=== PATIENT | female | born 1995 | race American Indian/Alaskan Native ===

== ENCOUNTER 2017-06-11 11:30 | Emergency (ER) | payer MEDICAID, OTHER ==
[~2017-06-11] VITALS: Ht 157.5 cm; Wt 54.5 kg
[2017-06-11 11:32] VITALS: Ht 157.5 cm; Wt 54.5 kg
[2017-06-11] MEDS ORDERED: SOD CHLORIDE 0.9% 1,000 ML IV STA (11:40)
[2017-06-11 12:11] LABS: BASOPHIL # 0.1 10^3/ul (0.0-0.1); BASOPHILS % 0.7 % (0.0-2.0); EOSINOPHILS # 0.2 10^3/ul (0.0-0.5); EOSINOPHILS % 2.1 % (0.0-7.0); HEMATOCRIT 38.2 % (37.0-47.0); HEMOGLOBIN 13.3 g/dl (12.0-16.0); LYMPHOCYTES # 4.8 10^3/ul (0.8-2.9); LYMPHOCYTES % 42.8 % (15.0-51.0); MEAN CORPUSCULAR HGB CONC 34.8 g/dl (32.0-37.0); MEAN PLATELET VOLUME 9.6 fl (7.4-10.4); MONOCYTE # 0.9 10^3/ul (0.3-0.9); MONOCYTES % 7.6 % (0.0-11.0); NEUTROPHIL # 5.2 10^3/ul (1.6-7.5); NEUTROPHILS % 46.2 % (39.0-77.0); PLATELET COUNT 299 10^3/UL (140-415); RED BLOOD COUNT 4.29 10^6/ul (4.20-5.40); RED CELL DISTRIBUTION WIDTH 12.6 % (11.5-14.5); WHITE BLOOD COUNT 11.2 10^3/ul (4.8-10.8)
[2017-06-11 12:46] LABS: ALANINE AMINOTRANSFERASE 31 IU/L (13-69); ALBUMIN 4.4 g/dl (3.3-4.9); ALBUMIN/GLOBULIN RATIO 1.37; ALKALINE PHOSPHATASE 68 IU/L (42-121); ANION GAP 18 (8-16); ASPARTATE AMINO TRANSFERASE 23 IU/L (15-46); BILIRUBIN,INDIRECT 0.4 mg/dl (0-1.1); BILIRUBIN,TOTAL 0.4 mg/dl (0.2-1.3); BLOOD UREA NITROGEN 7 mg/dl (7-20); CALCIUM 9.1 mg/dl (8.4-10.2); CARBON DIOXIDE 21 mmol/L (21-31); CHLORIDE 103 mmol/L (97-110); CREATININE 0.67 mg/dl (0.44-1.00); GLUCOSE 165 mg/dl (70-220); SODIUM 139 mmol/L (135-144); TOTAL PROTEIN 7.6 g/dl (6.1-8.1)
[2017-06-11 12:47] LABS: ACETAMINOPHEN < 10.0 ug/ml (10.0-30.0); ETHANOL < 10.0 mg/dl; POTASSIUM 2.6 mmol/L (3.5-5.1); SALICYLATE < 1.0 mg/dl (5.0-30.0)
--- NOTE | 2017-06-11 12:48 | RADRPT ---
PROCEDURE: CT Brain without. CLINICAL INDICATION: Altered mental status. TECHNIQUE: A CT of the brain was performed on multidetector high-resolution CT scanner utilizing a xial sections from the skull base through the vertex without contrast. The scan was reviewed in sof t tissue brain and high frequency resolution bone algorithm windows. Images were reviewed on a high -resolution PACS workstation. One or more the following does reduction techniques were utilized: Aut omated exposure control, adjustment of the mA/ or kV according to patient's size, or use of iterativ e reconstruction technique. The exam CTDI = 42.93 mGy and the DLP = 630.2 mGy-cm. DICOM images are available. COMPARISON: None available. FINDINGS: The ventricles and sulci are age-appropriate. There is no intracranial hemorrhage, mass effect or mi dline shift. No abnormal intra-axial or extra-axial fluid collections are seen. The nance/white damien er differentiation is preserved. No acute skull abnormality is noted. The visualized paranasal sinus es are essentially clear. IMPRESSION: 1. No acute intracranial hemorrhage, transcortical infarction or mass effect. RPTAT: HH .Ko Carrillo MD, MD Date Time Electronically viewed and signed by .Ko Carrillo MD, MD on 06/11/2017 12:48 .N/
[2017-06-11] MEDS ORDERED: POTASSIUM CHLORIDE (SR) 20 MEQ TAB PO STA (13:05)
[2017-06-11 13:18] VITALS: BP 123/81; PULSE 83; RESP 20
[2017-06-11 13:24] LABS: ADD UMIC YES; UR AMORPHOUS CRYSTAL FEW /HPF (NONE SEEN); UR ASCORBIC ACID NEGATIVE (NEGATIVE); UR BACTERIA FEW /HPF (NONE SEEN); UR BILIRUBIN (Dip) NEGATIVE (NEGATIVE); UR BLOOD (Dip) NEGATIVE (NEGATIVE); UR CLARITY SLIGHTLY CLOUDY (CLEAR); UR COLOR STRAW (YELLOW); UR GLUCOSE (Dip) NEGATIVE (NEGATIVE); UR KETONES (Dip) NEGATIVE (NEGATIVE); UR LEUKOCYTE ESTERASE (Dip) TRACE Leu/ul (NEGATIVE); UR NITRITE (Dip) NEGATIVE (NEGATIVE); UR RBC 7 /HPF (0-5); UR SPECIFIC GRAVITY (Dip) 1.003 (1.003-1.030); UR SQUAMOUS EPITHELIAL CELL FEW /HPF (FEW); UR TOTAL PROTEIN (Dip) NEGATIVE (NEGATIVE); UR UROBILINOGEN (Dip) NEGATIVE (NEGATIVE)
[2017-06-11 13:29] LABS: BARBITURATES Negative (NEGATIVE); BENZODIAZEPINES Negative (NEGATIVE); CANNABINOIDS Positive (NEGATIVE); COCAINE Negative (NEGATIVE); OPIATES Negative (NEGATIVE)
--- NOTE | 2017-06-11 14:27 | ERD ---
ER Documentation Chief Complaint Chief Complaint ingested "chocolate at work" unk substance in it pt drowsy, feels "Funny" HPI Patient is a 21-year-old female with no medical problems who presents altered. Please note the history and physical exam is limited secondary to the patient's mental status at this time. She says that she ate "chocolate" 1.5 hours ago and is now completely altered. She is not verbalizing anything. She came in with a friend who brought her. She was at work when this happened. She does not currently have a primary doctor. She upon review of old medical records has no previous visits to the ER. ROS All systems reviewed and are negative except as per history of present illness. Allergies Allergies: Coded Allergies: No Known Allergy (Unverified , 06/11/17) PMhx/Soc Medical and Surgical Hx: pt denies Medical Hx, pt denies Surgical Hx History of Surgery: No Anesthesia Reaction: No Hx Neurological Disorder: No Hx Respiratory Disorders: No Hx Cardiac Disorders: No Hx Psychiatric Problems: No Hx Miscellaneous Medical Probl: No Hx Alcohol Use: No Hx Substance Use: No Hx Tobacco Use: No Smoking Status: Never smoker FmHx Family History: No diabetes Physical Exam Vitals Vital Signs Date Time Temp Pulse Resp B/P Pulse Ox O2 Delivery O2 Flow Rate FiO2 06/11/17 13:18 83 20 123/81 99 Room Air 06/11/17 11:32 96.1 132 20 142/76 100 Physical Exam Const: Altered Head: Atraumatic Eyes: Normal Conjunctiva ENT: Normal External Ears, Nose and Mouth. Neck: Full range of motion..~ No meningismus. Resp: Clear to auscultation bilaterally Cardio: Regular rate and rhythm, no murmurs Abd: Soft, non tender, non distended. Normal bowel sounds Skin: No petechiae or rashes Back: No midline or flank tenderness Ext: No cyanosis, or edema Neur: Awake but encephalopathic, moves all 4 extremities, pupils are reactive and equal Result Diagram: 06/11/17 1158 06/11/17 1158 Results 24 hrs Laboratory Tests Test 06/11/17 11:58 06/11/17 13:00 White Blood Count 11.210^3/ul Red Blood Count 4.2910^6/ul Hemoglobin 13.3g/dl Hematocrit 38.2% Mean Corpuscular Volume 89.0fl Mean Corpuscular Hemoglobin 31.0pg Mean Corpuscular Hemoglobin Concent 34.8g/dl Red Cell Distribution Width 12.6% Platelet Count 90430^3/UL Mean Platelet Volume 9.6fl Neutrophils % 46.2% Lymphocytes % 42.8% Monocytes % 7.6% Eosinophils % 2.1% Basophils % 0.7% Nucleated Red Blood Cells % 0.0/100WBC Neutrophils # 5.210^3/ul Lymphocytes # 4.810^3/ul Monocytes # 0.910^3/ul Eosinophils # 0.210^3/ul Basophils # 0.110^3/ul Nucleated Red Blood Cells # 0.010^3/ul Sodium Level 139mmol/L Potassium Level 2.6mmol/L Chloride Level 103mmol/L Carbon Dioxide Level 21mmol/L Anion Gap 18 Blood Urea Nitrogen 7mg/dl Creatinine 0.67mg/dl Glucose Level 165mg/dl Calcium Level 9.1mg/dl Total Bilirubin 0.4mg/dl Direct Bilirubin 0.00mg/dl Indirect Bilirubin 0.4mg/dl Aspartate Amino Transf (AST/SGOT) 23IU/L Alanine Aminotransferase (ALT/SGPT) 31IU/L Alkaline Phosphatase 68IU/L Total Protein 7.6g/dl Albumin 4.4g/dl Globulin 3.20g/dl Albumin/Globulin Ratio 1.37 Serum HCG, Qualitative NEGATIVE Salicylates Level < 1.0mg/dl Acetaminophen Level < 10.0ug/ml Ethyl Alcohol Level < 10.0mg/dl Urine Color STRAW Urine Clarity SLIGHTLY CLOUDY Urine pH 7.0 Urine Specific [place] 1.003 Urine Ketones NEGATIVEmg/dL Urine Nitrite NEGATIVEmg/dL Urine Bilirubin NEGATIVEmg/dL Urine Urobilinogen NEGATIVEmg/dL Urine Leukocyte Esterase TRACELeu/ul Urine Microscopic RBC 7/HPF Urine Microscopic WBC 1/HPF Urine Squamous Epithelial Cells FEW/HPF Urine Amorphous Crystals FEW/HPF Urine Bacteria FEW/HPF Urine Hemoglobin NEGATIVEmg/dL Urine Glucose NEGATIVEmg/dL Urine Total Protein NEGATIVEmg/dl Urine Opiates Screen Negative Urine Barbiturates Negative Urine Amphetamines Screen Negative Urine Benzodiazepines Screen Negative Urine Cocaine Screen Negative Urine Cannabinoids Positive Current Medications Medications (Trade) Dose Ordered Sig/Nicole Route PRN Reason Start Time Stop Time Status Last Admin Dose Admin Sodium Chloride (NS) 1,000 ml @ 1,000 mls/hr Q1H STAT IV 06/11/17 11:40 06/11/17 12:39 DC 06/11/17 12:07 Potassium Chloride (Klor-Con 20) 40 meq ONCE STAT PO 06/11/17 13:05 06/11/17 13:06 DC 06/11/17 13:13 Procedures/MDM CT brain negative per radiology. EKG read by me: Rate/Rhythm: Tachycardic rate Intervals: Normal Impression: Tachycardia without ischemia Patient is a 21-year-old female presents altered. She had "chocolate" prior to this happening. I believe the chocolate likely had some sort of marijuana inside it as her urine drug screen is positive for marijuana in her toxidrome appears to match marijuana overdose. Laboratory studies showed a mild hypokalemia at 2.6 and she was given potassium by mouth. CT brain showed no intracranial mass or hemorrhage. She is now awake and talking and able to ambulate on her own after a period of hours of observation in the emergency department. She will be discharged into the care of her friend. She can return for any worsening symptoms. She should not use illicit drugs in the future. Departure Diagnosis: Primary Impression: Marijuana abuse Additional Impression: Encephalopathy acute Condition: Fair Patient Instructions: Hypokalemia, Marijuana Abuse [facility]: [facility] Usted se michelle hecho un examen mdico de control que le indica que no est en fina condicin que requiera tratamiento urgente en el Departamento de Emergencia. Un estudio ms profundo y el tratamiento de devine condicin pueden esperar sin ningn riesgo hasta que usted sea atendida/o en el consultorio de devine mdico o fina cl terrence. Es responsabilidad suya arreglar fina nisa para el seguimiento del helena. MANEJO DE CONDICIONES NO URGENTES EN EL FUTURO 1) Si usted tiene un mdico de atencin primaria: Usted debera llamar a devine mdico de atencin primaria antes de venir al departamento de emergencia. Despus de las horas de consultorio, devine doctor o devine asociado/a est disponible por telfono. El mdico o enfermero de shell en el servicio telefnico puede asesorarle por liya medio para atender el problema, o helena contrario se puede programar fina nisa. 2) Si usted no tiene un mdico de atencin primaria: Llame al mdico o clnica de referencia que aparece abajo ghassan las horas de consultorio para hacer fina nisa para que le vean. CLINICAS: [place] [phone] [facility] [phone] [facility]. [facility] [phone] [facility] [place] [phone] [facility] [place] [phone] [facility]. [phone] [address] Additional Instructions: Llame al doctor MAANA y uziel fina NISA PARA DENTRO DE 1-2 SANCHEZ.Dgale a la secretaria que nosotros le instruimos hacer esta nisa.Avise o llame si devine condicin se empeora antes de la nisa. Regresa aqui si peor o no mejor. BARBRA REICH MD Jun 11, 2017 14:27
== END 2017-06-11 13:49 | disposition home or self-care (01) ==
LOC: E/R 11:30
DX: F12.10 Cannabis abuse, uncomplicated (principal); G93.40 Encephalopathy, unspecified; R40.2142 Coma scale, eyes open, spontaneous, at arrival to emergency department; R40.2212 Coma scale, best verbal response, none, at arrival to emergency department; R40.2362 Coma scale, best motor response, obeys commands, at arrival to emergency department
CPT/HCPCS: 36415; 70450; 80053; 80306; 80307; 81001; 84703; 85025; J7030; Z7502; Z7610